=== PATIENT | female | born 1975 | race Caucasian/White ===

== ENCOUNTER 2017-11-29 08:59 | Emergency (ER) | payer OTHER ==
[2017-11-29] MEDS: HYDROCODONE/APAP (5/325) TAB PO (09:45)
[2017-11-29] MEDS: KETOROLAC 60 MG INJ IM (09:46)
== END 2017-11-29 10:11 | disposition home or self-care (01) ==
LOC: FTE 08:59
DX: M54.2 Cervicalgia (principal); R20.2 Paresthesia of skin
CPT/HCPCS: 81025; 82962; 93005; 96372; 99284-25